=== PATIENT | female | born 1955 | race Hispanic/Latino ===

== ENCOUNTER 2020-01-07 16:26 | Emergency (ER) | payer OTHER, SELFPAY ==
[2020-01-07 16:34] VITALS: BP 115/46; PULSE 61; RESP 16; TEMP 36.6; O2SAT 99
--- NOTE | 2020-01-07 16:43 | ED.EAR ---
HPI - Ear Problem General Chief complaint: Ear Stated complaint: ear pain Time Seen by Provider: 01/07/20 16:43 Source: patient and RN notes reviewed History of Present Illness HPI Narrative: Patient is a 64-year-old female that presents the urgent care with complaints of right otalgia for the last 4 days. Patient has been taking Aleve without much relief. Denies any drainage, fever, nausea, vomiting, dizziness. Denies any history of ear infections or trauma to the ear. Has not put anything in the ear such as Q-tips, peroxide, [id number] drops. No other acute complaints. No acute distress noted. Patient aware the plan of care. Related Data Home Medications Medication Instructions Recorded Confirmed celecoxib mg 01/07/20 citalopram mg 01/07/20 levothyroxine 01/07/20 lisinopril-hydrochlorothiazide tablet 01/07/20 secukinumab [Cosentyx Pen] mg SUBCUT 01/07/20 tramadol mg 01/07/20 Allergies Allergy/AdvReac Type Severity Reaction Status Date / Time amoxicillin Allergy Mild DIARRHEA Verified 07/26/19 15:25 cat dander Allergy Unknown Wheezing Verified 01/07/20 16:31 mold Allergy Unknown Wheezing Verified 01/07/20 16:31 Sulfa (Sulfonamide Allergy Unknown Hives Verified 01/07/20 16:31 Antibiotics) Review of Systems Review of Systems: Narrative: CONSTITUTIONAL: Denies fever, chills, or sweats. EYES: Denies visual changes, redness, or discharge. ENT: Reports of right otalgia CARDIOVASCULAR: Denies chest pain, palpitations, or edema. RESPIRATORY: Denies cough or dyspnea. GASTROINTESTINAL: Denies abdominal pain, nausea, vomiting, or diarrhea. GENITOURINARY: Denies dysuria or hematuria. SKIN: Denies rash or itching. MUSCULOSKELETAL: Denies back pain, joint pain, or myalgia. NEUROLOGIC: Denies headache, numbness, or weakness. All other systems reviewed are negative, except as documented in HPI. [facility] Family History Family History (Updated 02/24/17 @ 13:12 by DOCTOR UNKNOWN) Other Family history of arthritis Family history of osteoarthritis Social History Social History Smoking status: Never smoker Comments At the time of my signature, I reviewed and agree with the nursing past medical, surgical, social, and family history. There is no relevant family history pertinent to the patient complaint. Exam Narrative: Exam Narrative: GENERAL: This is a well-nourished, well-developed patient, in no apparent distress. HEAD: normocephalic, atraumatic. EYES: PERRL. Sclera clear/white. Vision is grossly intact. EARS: External ears normal, auditory canals clear and without drainage, mild fluid noted behind right TM without otitis, left TMs normal without perforation. Hearing grossly intact. NOSE: External nose normal with no obvious nasal discharge, nares without redness, no rhinorrhea. THROAT: Mucous membranes moist NECK: Neck supple CARDIOVASCULAR: Regular rate and rhythm without murmurs, gallops, or rubs. RESPIRATORY: Clear to auscultation. Breath sounds equal bilaterally. No wheezes, rales, or rhonchi. SKIN: warm, intact with no suspicious lesions or rash, good texture and turgor. NEURO: awake, alert, and oriented to person, place and time. There were no obvious focal neurologic abnormalities. EXTREMITIES: No clubbing, cyanosis, or edema. Course Vital Signs Vital signs: Vital Signs Temperature 97.9 F 01/07/20 16:34 Pulse Rate 61 01/07/20 16:34 Respiratory Rate 16 01/07/20 16:34 Blood Pressure 115/46 L 01/07/20 16:34 Pulse Oximetry 99 01/07/20 16:34 Temperature 97.9 F 01/07/20 16:34 Pulse Rate 61 01/07/20 16:34 Respiratory Rate 16 01/07/20 16:34 Blood Pressure 115/46 L 01/07/20 16:34 Pulse Oximetry 99 01/07/20 16:34 Reviewed Medical Decision Making MDM Narrative Medical decision making narrative: Advised patient to use Claritin or Zyrtec in conjunction with Flonase nasal spray for fluid behind the ear. May also use Benadryl prior to bedtime. Do not take C
== END 2020-01-07 16:57 | disposition home or self-care (01) ==
PROVIDERS: Emergency Provider Nurse Practitioner Family; PCP Family Medicine Adolescent Medicine
DX: H92.01 Otalgia, right ear (principal); I10 Essential (primary) hypertension; E03.9 Hypothyroidism, unspecified; Z98.41 Cataract extraction status, right eye; Z98.42 Cataract extraction status, left eye
CPT/HCPCS: 99211; G0463

== ENCOUNTER 2020-07-03 08:04 | Outpatient (CLI) | payer OTHER, SELFPAY ==
--- NOTE | ~2020-07-03 | XR_ITS ---
EXAMINATION: XR hip RT min 2V DATE: 07/03/2020 08:16 INDICATION: Right hip pain. TECHNIQUE: 2 views of right hip were obtained. COMPARISON: Right hip radiographs 02/24/2017 FINDINGS: Bone alignment is normal. No fracture. There is mild right hip osteoarthritis. IMPRESSION: 1. Mild right hip osteoarthritis. Reviewed, dictated and finalized at location A.
== END 2020-07-03 08:05 ==
LOC: MICIMG 08:05
PROVIDERS: PCP Family Medicine Adolescent Medicine; Visit Provider Anesthesiology
DX: M25.551 Pain in right hip (principal); M16.11 Unilateral primary osteoarthritis, right hip
CPT/HCPCS: 73502

== ENCOUNTER 2021-03-28 08:20 | Outpatient (CLI) | payer OTHER, SELFPAY ==
--- NOTE | ~2021-03-28 | MM_ITS ---
EXAMINATION: MM screening [facility] BI w neeru HISTORY: Screening mammogram TECHNIQUE: Craniocaudal and mediolateral oblique 3-D tomosynthesis images were obtained and synthetic 2-D images were generated. CAD analysis was submitted and interpreted. COMPARISON: 08/31/2013, 09/07/2012, 01/06/2008 BREAST PARENCHYMAL COMPOSITION: There are scattered areas of fibroglandular density. FINDINGS: There is no evidence of suspicious mass, calcification, or architectural distortion to sugg est malignancy in either breast. There has been no suspicious interval change. IMPRESSION: 1. No mammographic evidence of malignancy. 2. Recommend routine screening mammography in one year. BI-RADS Category 1: Negative Reviewed, dictated and finalized at location A.
== END 2021-03-28 08:21 | disposition home or self-care (01) ==
LOC: ANHIMG 08:22
PROVIDERS: PCP Family Medicine Adolescent Medicine; Visit Provider Family Medicine Adolescent Medicine
DX: Z12.31 Encounter for screening mammogram for malignant neoplasm of breast (principal)
CPT/HCPCS: 77063; 77067

== ENCOUNTER → 2021-11-06 02:31 | Outpatient (CLI) | payer OTHER, SELFPAY ==
[2021-11-06 19:47] LABS: SARS-CoV-2 RNA PCR Positive
== END ==
PROVIDERS: PCP Family Medicine Adolescent Medicine; Visit Provider Physician Assistant
DX: U07.1 COVID-19 (principal)
CPT/HCPCS: C9803; U0003; U0005

== ENCOUNTER 2022-12-23 11:34 | Day surgery (SDC) | payer MEDICARE, SELFPAY ==
--- NOTE | 2022-12-22 16:53 | PM.HPGS ---
History of Present Illness History of Present Illness Consent: Risks, benefits, and alternatives have been discussed and questions answered. Patient agrees to proceed with procedure. Chief complaint: Family History of Colon Cancer Narrative: Lynette Phillip is a 67 year old female who was referred for colon cancer screening. She has a history of polyps and also family history of colon cancer, her brother. Review of Systems Review of Systems: All systems reviewed & are unremarkable except as noted in HPI and below PMFSH Past Medical History Medical History Allergic rhinitis Asthma Chronic low back pain Family history of colon cancer Hypertension Hypertension, essential Hypothyroid Psoriatic arthritis Thrombosed hemorrhoids Thyroid disease Surgical History Surgical History H/O rotator cuff surgery 2003 R & 2019 L History of surgery on left wrist (08/2021) DeQuervain's tendon release History of tonsillectomy Hx of section 1979 & 1984 Family History Family History Sibling Carcinoma of colon Diabetes mellitus Father Heart disease Acute myocardial infarction Hypertension Daughter Asthma Depression Son Asthma Family history of arthritis Family history of osteoarthritis Sibling Diabetes mellitus Carcinoma of colon Other Colon polyp Social History Social History Smoking status: Never smoker Second hand tobacco smoke exposure: No Alcohol intake: current Drinks per week: 4 Alcohol use details: Socially Substance use: never Substance use type: does not use Living arrangements: alone Occupation/Education: retired Gender identity (if verbalized by the patient): Female Sexual Orientation (if Verbalized by the Patient): Straight or Heterosexual Spiritual care concerns: No Agree to blood products: Yes Meds Home Medications and Allergies Home Medications Medication Instructions Recorded Confirmed Type celecoxib 200 mg capsule 200 mg PO DAILY 01/07/20 12/23/22 History secukinumab 150 mg/mL subcutaneous 150 mg subcut MONTHLY 01/07/20 12/23/22 History pen injector (Cosentyx Pen) ascorbate calcium (vitamin C) 500 500 mg PO DAILY 06/06/21 12/23/22 History mg tablet biotin 10 mg tablet 10 mg PO DAILY 06/06/21 12/23/22 History cholecalciferol (vitamin D3) 125 125 mcg PO DAILY 06/06/21 12/23/22 History mcg (5,000 unit) capsule tramadol 50 mg tablet 50 mg PO TID PRN Pain 12/24/21 12/23/22 History lisinopril 20 mg tablet 20 mg PO DAILY #90 tabs 04/07/22 12/23/22 Rx citalopram 40 mg tablet 20 mg PO DAILY 04/22/22 12/23/22 History levothyroxine 200 mcg tablet 200 mcg PO DAILY #90 tabs 09/14/22 12/23/22 Rx albuterol sulfate 90 mcg/actuation 2 inh inhalation Q4H PRN shortness 10/14/22 12/23/22 Rx aerosol inhaler of breath or wheezing #8.5 grams Allergies Allergy/AdvReac Type Severity Reaction Status Date / Time cat dander Allergy Unknown Wheezing Verified 11/11/22 07:44 mold Allergy Unknown Wheezing Verified 11/11/22 07:44 Sulfa (Sulfonamide Allergy Unknown Hives Verified 12/23/22 11:55 Antibiotics) amoxicillin AdvReac Mild DIARRHEA Verified 12/23/22 11:55 Exam Resp: Auscultation: clear to auscultation bilaterally Cardio: Rate: regular rate Rhythm: regular rhythm GI: GI Palp: Yes Soft to palpation and No Tenderness to palpation present (GI) Assessment and Plan Assessment and plan (1) Colon cancer screening: Code(s): Z12.11 - Encounter for screening for malignant neoplasm of colon Status: Acute Assessment and Plan: Colonoscopy with possible biopsy or polypectomy or cautery or injection of substances.
[2022-12-23 12:02] VITALS: BMI 30.8
[2022-12-23 12:37] VITALS: BP 100/51; PULSE 66; RESP 18; TEMP 36.6; O2SAT 99
--- NOTE | 2022-12-23 12:42 | WPDANESEPPF ---
Anes - Initial Pre Proc Eval Procedure: Operation Date: 12/23/22 13:00 Proposed Procedures p Screening Colonoscopy - Marcus Parker MD Date/Time: 12/23/22 12:42 Surgeon: Marcus Parker MD Pre Op Diagnosis: Family History of Colon Cancer Patient Data Age: 67 Gender: F Height: 1.6 m Weight: 79 kg Last Vital Signs Temp 36.6 C 12/23/22 12:37 Pulse 66 12/23/22 12:37 Resp 18 12/23/22 12:37 BP 100/51 L 12/23/22 12:37 Pulse Ox 99 12/23/22 12:37 O2 Del Method Room Air 12/23/22 12:37 Allergies Allergy/AdvReac Type Severity Reaction Status Date / Time cat dander Allergy Unknown Wheezing Verified 11/11/22 07:44 mold Allergy Unknown Wheezing Verified 11/11/22 07:44 Sulfa (Sulfonamide Allergy Unknown Hives Verified 12/23/22 11:55 Antibiotics) amoxicillin AdvReac Mild DIARRHEA Verified 12/23/22 11:55 Home Medications Medication Instructions Recorded Confirmed Type celecoxib 200 mg capsule 200 mg PO DAILY 01/07/20 12/23/22 History secukinumab 150 mg/mL subcutaneous 150 mg subcut MONTHLY 01/07/20 12/23/22 History pen injector (Cosentyx Pen) ascorbate calcium (vitamin C) 500 500 mg PO DAILY 06/06/21 12/23/22 History mg tablet biotin 10 mg tablet 10 mg PO DAILY 06/06/21 12/23/22 History cholecalciferol (vitamin D3) 125 125 mcg PO DAILY 06/06/21 12/23/22 History mcg (5,000 unit) capsule tramadol 50 mg tablet 50 mg PO TID PRN Pain 12/24/21 12/23/22 History lisinopril 20 mg tablet 20 mg PO DAILY #90 tabs 04/07/22 12/23/22 Rx citalopram 40 mg tablet 20 mg PO DAILY 04/22/22 12/23/22 History levothyroxine 200 mcg tablet 200 mcg PO DAILY #90 tabs 09/14/22 12/23/22 Rx albuterol sulfate 90 mcg/actuation 2 inh inhalation Q4H PRN shortness 10/14/22 12/23/22 Rx aerosol inhaler of breath or wheezing #8.5 grams Patient hx anesthesia problems: none Family hx anesthesia problems: other (sister vagal) Results Review: All pre-operative results and documents have been reviewed as part of the pre-operative evaluation. [facility] Past Medical History Medical History Allergic rhinitis Asthma Chronic low back pain Family history of colon cancer Hypertension Hypertension, essential Hypothyroid Psoriatic arthritis Thrombosed hemorrhoids Thyroid disease Surgical History Surgical History H/O rotator cuff surgery 2003 R & 2019 L History of surgery on left wrist (08/2021) DeQuervain's tendon release History of tonsillectomy Hx of section 1979 & 1984 Family History Family History Sibling Carcinoma of colon Diabetes mellitus Father Heart disease Acute myocardial infarction Hypertension Daughter Asthma Depression Son Asthma Family history of arthritis Family history of osteoarthritis Sibling Diabetes mellitus Carcinoma of colon Other Colon polyp Social History Social History Smoking status: Never smoker Second hand tobacco smoke exposure: No Alcohol intake: current Drinks per week: 4 Alcohol use details: Socially Substance use: never Substance use type: does not use Living arrangements: alone Occupation/Education: retired Gender identity (if verbalized by the patient): Female Sexual Orientation (if Verbalized by the Patient): Straight or Heterosexual Spiritual care concerns: No Agree to blood products: Yes Anes - Eval Final PreProcedure Day of Procedure 12/23/22 12:42 Patient weight: obese Heart: regular rate and rhythm Lungs: clear to auscultation Airway: Mallampati scale class II Neurological: alert and oriented Last oral intake: >/= 8 hours ASA classification: III Emergent: no Anesthetic plan: proceed Anesthesia type and monitoring: general GIVS and standard monitoring Results Revie
[2022-12-23] MEDS: LACTATED RINGERS 1,000 ML 150 ML IV CONT (13:01)
[2022-12-23 13:25] VITALS: BP 99/50; PULSE 54; RESP 16; O2SAT 100
--- NOTE | 2022-12-23 13:34 | WPDANESPN ---
Anes - Prog Note Post-Op Date/Time: 12/23/22 13:34 Cardiovascular status: normal Respiratory status: normal Airway patency: baseline Mental status: baseline Post-Op hydration status: normal Vital Signs: Last Vital Signs Temp 36.6 C 12/23/22 12:37 Pulse 66 12/23/22 12:37 Resp 18 12/23/22 12:37 BP 100/51 L 12/23/22 12:37 Pulse Ox 99 12/23/22 12:37 O2 Del Method Room Air 12/23/22 12:37 Pain Score (VAS): 0 I/O: Intake & Output 12/22/22 12/23/22 12/23/22 23:59 07:59 15:59 Intake Total 300 Balance 300 Patient Feedback: Patient satisfied with anesthetic care.
[2022-12-23 13:35] VITALS: BP 110/50; PULSE 53; RESP 15; O2SAT 99
[2022-12-23 13:45] VITALS: BP 100/50; PULSE 51; RESP 15; O2SAT 100
== END 2022-12-23 14:11 | disposition home or self-care (01) ==
PROVIDERS: PCP Family Medicine Adolescent Medicine; Visit Provider Internal Medicine Gastroenterology
PROC: 0DJD8ZZ Inspection of Lower Intestinal Tract, Via Natural or Artificial Opening Endoscopic (ICD-10-PCS; CPT 45378; principal; 2022-12-23 13:00)
DX: Z12.11 Encounter for screening for malignant neoplasm of colon (principal)
CPT/HCPCS: 45378

== ENCOUNTER 2023-09-20 07:27 | Emergency (ER) | payer MEDICARE, SELFPAY ==
--- NOTE | ~2023-09-20 | CT_ITS ---
EXAMINATION: CT facial & cervical spine wo DATE: 09/20/2023 08:07 INDICATION: Head injury TECHNIQUE: Computed tomography (CT) of the maxillofacial region and cervical spine was performed with out intravenous contrast. The dose-length product (DLP) was 369.71 mGy-cm. Automated exposure control and iterative reconstruction technique were employed. COMPARISON: None FINDINGS: MAXILLOFACIAL CT: There is a right frontal scalp hematoma. No facial fractures identified. The globes and orbits are no rmal. Changes in the globes are likely from ocular lens surgery. CERVICAL SPINE CT: There are 2 mm of anterolisthesis of C4 on C5. There is moderate loss of intervertebral disc space he ight at C5-6 and C6-7. The vertebral body heights are maintained. The odontoid process is intact. The re is multilevel severe facet and uncovertebral joint osteoarthritis. Small degenerative osteophytes project from the anterior endplates of multiple vertebral bodies. IMPRESSION: 1. Right frontal scalp hematoma without acute abnormality of the facial bones. 2. Moderate cervical spondylosis without acute findings. Reviewed, dictated and finalized at location B. 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
--- NOTE | ~2023-09-20 | CT_ITS ---
EXAMINATION: CT brain wo con INDICATION: Head injury COMPARISON: 09/16/2008 TECHNIQUE: Standard unenhanced head CT. The dose-length product (DLP) was 605.33 mGy-cm. The mA was a djusted according to patient size. Iterative reconstruction technique was employed. FINDINGS: No intracranial hemorrhage, acute infarction, or abnormal mass lesion. The ventricles are n ormal. No abnormal mass effect or midline shift. The browning-white matter differentiation is normal. The basal cisterns are patent. There is a right frontal scalp hematoma. The orbits are normal. There is mild mucosal thickening of the paranasal sinuses. IMPRESSION: 1. No acute intracranial abnormality. Reviewed, dictated and finalized at location B. 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
[2023-09-20 07:33] VITALS: BP 159/76; PULSE 53; RESP 18; TEMP 36.7; O2SAT 98
--- NOTE | 2023-09-20 07:46 | ED.GENADULT ---
HPI - General Adult General Chief complaint: Fall Stated complaint: fall Time Seen by Provider: 09/20/23 07:32 History of Present Illness HPI narrative: Patient is a 67-year-old female who presents ER after a fall overnight. Patient was walking in the dark to care for her puppy who was barking. She tripped over a dog toy and landed on her face. Positive LOC. She has tenderness over her nose with persistent tearing in her eyes. She has a right-sided headache. She is on no blood thinning medications. Denies neck pain. No change in vision. No foreign body sensation in the eyes. Related Data Home Medications Medication Instructions Recorded Confirmed secukinumab 150 mg/mL subcutaneous 150 mg subcut MONTHLY 01/07/20 01/13/23 pen injector (Cosentyx Pen) ascorbate calcium (vitamin C) 500 500 mg PO DAILY 06/06/21 01/13/23 mg tablet cholecalciferol (vitamin D3) 125 125 mcg PO DAILY 06/06/21 01/13/23 mcg (5,000 unit) capsule cetirizine 10 mg tablet (Zyrtec) 20 mg PO DAILY PRN 04/06/23 Allergies Allergy/AdvReac Type Severity Reaction Status Date / Time cat dander Allergy Unknown Wheezing Verified 09/20/23 07:39 mold Allergy Unknown Wheezing Verified 09/20/23 07:39 Sulfa (Sulfonamide Allergy Unknown Hives Verified 09/20/23 07:39 Antibiotics) amoxicillin AdvReac Mild DIARRHEA Verified 09/20/23 07:39 Review of Systems Review of Systems: All systems reviewed & are unremarkable except as noted in HPI and below Constitutional: Constitutional: Denies chills and Denies fever(s) Eyes: Eyes: Denies change in vision and Denies photophobia Comments: Tearing of the eyes ENT: Reports epistaxis (Right naris), Reports nasal congestion and Denies sore throat Cardiovascular: Cardiovascular: Reports no additional cardiovascular complaints Respiratory: Respiratory: Reports no additional respiratory complaints Neurologic: Denies confusion, Reports headache(s), Denies focal weakness and Denies numbness PMFSH Past Medical History Medical History Allergic rhinitis Asthma Chronic low back pain Hypertension, essential Hypothyroid Osteoarthritis Psoriatic arthritis Thrombosed hemorrhoids Thyroid disease Surgical History Surgical History H/O rotator cuff surgery 2004 R & 2019 L History of surgery on left wrist (08/2021) DeQuervain's tendon release History of tonsillectomy Hx of section 1979 & 1984 Family History Family History Sibling Carcinoma of colon Diabetes mellitus Father Heart disease Acute myocardial infarction Hypertension Daughter Asthma Depression Son Asthma Family history of arthritis Family history of osteoarthritis Sibling Diabetes mellitus Carcinoma of colon Other Colon polyp Social History Social History Smoking status: Never smoker Second hand tobacco smoke exposure: No Alcohol intake: current Drinks per week: 4 Alcohol use details: Socially Substance use: never Substance use type: does not use Lack of Transportation: No Lack of Food: Never True Current Housing: I Have Housing Concerned About Future Housing: No Difficulty Paying Gas/Electric Bills: No Difficulty Paying for Meds: No Currently Unemployed: No Education: Associate Degree Difficulty w/ Childcare or Family Care: No Living arrangements: alone Occupation/Education: retired Gender identity (if verbalized by the patient): Female Sexual Orientation (if Verbalized by the Patient): Straight or Heterosexual Spiritual care concerns: No Agree to blood products: Yes Exam Narrative: GENERAL: Well-appearing, well-nourished, and in no acute distress. HEAD: Normocephalic, facial trauma noted. EYES: PERR
[2023-09-20] MEDS: ONDANSETRON INJ 4 MG/2 ML VIAL IV PUSH (10:33)
[2023-09-20 10:45] VITALS: BP 131/50; PULSE 64; RESP 18; O2SAT 99
== END 2023-09-20 10:48 | disposition home or self-care (01) ==
PROVIDERS: Emergency Provider Emergency Medicine; PCP Family Medicine Adolescent Medicine
DX: S06.0X9A Concussion with loss of consciousness of unspecified duration, initial encounter (principal); S00.83XA Contusion of other part of head, initial encounter; J45.909 Unspecified asthma, uncomplicated; I10 Essential (primary) hypertension; E03.9 Hypothyroidism, unspecified; E07.9 Disorder of thyroid, unspecified; M19.90 Unspecified osteoarthritis, unspecified site; L40.50 Arthropathic psoriasis, unspecified; M47.812 Spondylosis without myelopathy or radiculopathy, cervical region; W18.09XA Striking against other object with subsequent fall, initial encounter
CPT/HCPCS: 70450; 70486; 72125; 96374; 99284; J2405

== ENCOUNTER 2024-02-14 15:53 | Outpatient (CLI) | payer MEDICARE, SELFPAY ==
--- NOTE | ~2024-02-14 | XR_ITS ---
Left Hand Technique: PA, oblique, and lateral views were obtained. Clinical History: Osteoarthritis Findings: No acute fracture or dislocation is seen. There is mild degenerative change of the first CM C joint. There is advanced degenerative change of the third DIP joint. There is moderate degenerative change of the fifth DIP joint. Soft tissues are unremarkable. Impression: Polyarticular osteoarthritis, as detailed above. Reviewed, dictated and finalized at location M. Impression: Polyarticular osteoarthritis, as detailed above.
--- NOTE | ~2024-02-14 | XR_ITS ---
Right Hand Technique: PA, oblique, and lateral views were obtained. Clinical History: Osteoarthritis Findings: No acute fracture or dislocation is seen. There is mild degenerative change of the first CM C joint. There is moderate to advanced degenerative change of the fourth and fifth DIP joints. There is mild degenerative change of the PIP joints.. Soft tissues are unremarkable. Impression: Polyarticular osteoarthritis, as detailed above. Reviewed, dictated and finalized at location M. Impression: Polyarticular osteoarthritis, as detailed above.
== END 2024-02-14 15:54 ==
PROVIDERS: PCP Family Medicine Adolescent Medicine; Visit Provider Plastic Surgery
DX: M19.041 Primary osteoarthritis, right hand (principal); M19.042 Primary osteoarthritis, left hand
CPT/HCPCS: 73130

== ENCOUNTER 2024-10-26 12:09 | Emergency (ER) | payer MEDICARE, SELFPAY ==
[2024-10-26 12:09] VITALS: BP 116/47; PULSE 54; RESP 17; TEMP 36.7; O2SAT 96
--- NOTE | 2024-10-26 12:15 | ED_ITS ---
HPI - Allergic Reaction General Chief complaint: Allergic Reaction Stated complaint: ?allergic reaction Time Seen by Provider: 10/26/24 12:15 Source: patient, EMS and RN notes reviewed Mode of arrival: EMS Limitations: no limitations History of Present Illness HPI narrative: Patient presents with concern for allergic reaction versus angioedema. She presents urgent care. Overnight she felt like her lip was swollen this was more noticeable when she got up at 9:30 a.m. this morning. She has been taking lisinopril for several years and in fact the dose was recently changed in that it was decreased from 20 to 10 becomes she has otherwise been losing weight has concomitantly been experiencing improvement in her hypertension. She denies any shortness of breath nausea vomiting. She did briefly have a weird feeling in her throat that is now gone. She felt like her neck was possibly swollen the left more than the right. She otherwise denies any new foods, bedding, environmental factors, soaps, detergents. No rash or pruritus. She was administered intramuscular 125 mg Solu-Medrol and 25 mg diphenhydramine. Related Data Home Medications ?Medication ?Instructions ?Recorded ?Confirmed ?Last Taken ?Type cholecalciferol (vitamin D3) 125 125 mcg PO DAILY 06/06/21 10/19/24 12/20/22 History mcg (5,000 unit) capsule cetirizine 10 mg tablet (Zyrtec) 20 mg PO DAILY PRN 04/06/23 10/19/24 Unknown History secukinumab 150 mg/mL subcutaneous 150 mg subcut ONCE 06/30/24 10/19/24 Unknown History syringe (Cosentyx) tirzepatide (weight loss) 10 10 mg subcut WEEKLY 10/19/24 10/19/24 Unknown History mg/0.5 mL subcutaneous pen injector Allergies Allergy/AdvReac Type Severity Reaction Status Date / Time lisinopril Allergy Intermediate angioedema Verified 10/26/24 14:14 cat dander Allergy Unknown Wheezing Verified 10/26/24 12:15 mold Allergy Unknown Wheezing Verified 10/26/24 12:15 Sulfa (Sulfonamide Allergy Unknown Hives Verified 10/26/24 12:15 Antibiotics) amoxicillin AdvReac Mild DIARRHEA Verified 10/26/24 12:15 PMF Past Medical History Medical History Osteoarthritis Allergic rhinitis Psoriatic arthritis Chronic low back pain Thrombosed hemorrhoids Hypertension, essential Thyroid disease Asthma Surgical History Surgical History History of tonsillectomy History of surgery on left wrist (08/2021) DeQuervain's tendon release H/O rotator cuff surgery 2004 R & 2019 L Hx of section 1979 & 1984 Family History Family History Sibling Carcinoma of colon Diabetes mellitus Father Heart disease Acute myocardial infarction Hypertension Daughter Asthma Depression Son Asthma Family history of arthritis Family history of osteoarthritis Sibling Diabetes mellitus Carcinoma of colon Other Colon polyp Social History Social History Smoking status: Never smoker Second hand tobacco smoke exposure: No Alcohol intake: current Drinks per week: 4 Alcohol use details: Socially Substance use type: marijuana Other substance usage details: Occasional Do You Feel Safe in your Home?: Yes Lack of Transportation: No Lack of Food: Never True Current Housing: I Have Housing Concerned About Future Housing: No Difficulty Paying Gas/Electric Bills: No Difficulty Paying for Meds: No Currently Unemployed: YES Education: Associate Degree Difficulty w/ Childcare or Family Care: No Living arrangements: alone Occupation/Education: retired Gender identity (if verbalized by the patient): Female Sexual Orientation (if Verbalized by the Patient): Straight or Heterosexual Spiritual care concerns: No Agree to blood products: Yes Exam 2 Narrative: GENERAL: Well-appearing, well-nourished, and in no acute distress. HEAD: Normocephalic, atraumatic. EYES: Non injected, non icteric ENT: Nares clear, no rhinorrhea or epistaxis. Normal posterior oropharynx without tonsillar hypertrophy, erythema. Patient does have swollen lower lip the right greater than the left. Tongue is normal size patient maintaining secretions. No swelling under tongue. NECK: Supple. No appreciable swelling or fullness. No submandibular swelling. CHEST: Speaking in full sentences. No respiratory distress. Lungs clear to auscultation bilaterally without wheezes. No stridor. HEART: Bradycardic rate and rhythm. . ABDOMEN: Soft, nondistended. EXTREMITIES: Normal range of motion. No lower extremity edema. SKIN: Warm, dry, no rash. NEURO: No focal deficits. Alert and oriented x3. PSYCH: Normal mood and affect. Course Vital Signs Vital signs: Vital Signs Temperature 98.0 F 10/26/24 12:09 Pulse Rate 54 L 10/26/24 12:09 Respiratory Rate 17 10/26/24 12:09 Blood Pressure 116/47 L 10/26/24 12:09 Pulse Oximetry 96 10/26/24 12:09 Oxygen Delivery Room Air 10/26/24 12:09 Temperature 98.0 F 10/26/24 12:09 Pulse Rate 60 10/26/24 15:30 Respiratory Rate 16 10/26/24 15:30 Blood Pressure 108/59 L 10/26/24 15:30 Pulse Oximetry 99 10/26/24 15:30 Oxygen Delivery Room Air 10/26/24 12:45 MDM - Allergic Reaction MDM Narrative Medical decision making narrative: Patient presents with concern for allergic reaction versus angioedema. She is on lisinopril and has been taking this for years (in fact, recent dose change in that it was decreased 2 weeks ago given she has been losing weight). In the emergency department she is afebrile with vital signs notable for mild bradycardia as mildly low diastolic blood pressure. Patient is reassessed. Lip appears about the same, slightly improved. No additional symptoms. Notified that she would remain in the ED for a bit longer for observation and lisinopril would be added to her allergy list and that she should follow-up with her primary care physician Dr. Purvis to discuss alternative antihypertensive regimen. Patient verifies understanding and is in agreement. Differential Diagnosis Differential diagnosis: Likely anaphylaxis, allergic reaction, angioedema and adverse reaction to drug Lab Data Attestation: I reviewed the patient's lab results. 10/26/24 12:32 10/26/24 12:32 Labs: Lab Results 10/26/24 Range/Units 12:32 WBC 5.7 (4.5-10.0) K/mm3 RBC 3.99 L (4.2-5.4) M/mm3 Hgb 12.3 (12.0-15.0) g/dL Hct 37.1 (37.0-47.0) % MCV 93.0 (80-100) fl MCH 30.8 (26-34) pg MCHC 33.2 (32-36) g/dl RDW 13.8 (11.5-14.5) % Plt Count 224 (150-375) k/mm3 MPV 9.9 (7.4-10.4) fl Immature Gran % (Auto) 0.2 (0-0.5) % Neut % (Auto) 64.7 (45.5-73.1) % Lymph % (Auto) 20.3 (18.3-44.2) % [place] % (Auto) 5.4 (2.6-8.5) % Eos % (Auto) 8.9 H (0-4.4) % Baso % (Auto) 0.5 (0.2-1.2) % Lymph # (Auto) 1.16 (0.9-3.2) K/mm3 [place] # (Auto) 0.3 (0.1-0.6) K/mm3 Eos # (Auto) 0.5 H (0-0.3) K/mm3 Baso # (Auto) 0.0 (0.0-0.1) K/mm3 Abs Immat Gran (auto) 0.01 (0.00-0.031) K/mm3 Absolute Neuts (auto) 3.7 (1.3-6.7) K/mm3 Absolute Nucleated RBC 0.000 (0.0-0.012) K/mm3 Nucleated RBC % 0.0 (0.0-0.2) % Sodium 136 L (137-145) mmol/L Potassium 4.0 (3.4-5.0) mmol/L Chloride 108 H (98-107) mmol/L Carbon Dioxide 24 (22-30) mmol/L Anion Gap 4 (4-12) mmol/L BUN 23 H (7-17) mg/dL Creatinine 0.90 (0.7-1.0) mg/dL Estim Creat Clear Calc 53 ml/min Estimated GFR > 60 (59 - ) Glucose 95 (65-110) mg/dL Calcium 8.8 (8.4-10.2) mg/dL Magnesium 1.8 (1.6-2.3) mg/dL Total Bilirubin 0.6 (0.2-1.3) mg/dL AST 29 (14-36) U/L ALT 12 (6-35) U/L Alkaline Phosphatase 52 (38-126) U/L Total Protein 7.0 (6.3-8.2) g/dL Albumin 4.0 (3.5-5.1) g/dL C1 Esterase Inhibitor Pending Complement C4 32.4 (14.0-44.0) mg/dL ECG Data EKG #1: Attestation: I personally reviewed and interpreted this ECG as follows: ECG completion date: 10/26/24 ECG completion time: 12:13 Interpretation: Sinus bradycardia rate of 54 beats per minute. NE interval 164. QRS 89. QT/QTC 468/453. Good R-wave progression across the precordial leads. No T-wave inversions in inferior leads or leads V3 through V6. 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 It has been added to her allergy list in the computer/electronic medical record. Please follow-up with primary care physician to discuss alternative blood pressure medication. Do NOT continue to take lisinopril. Return to the emergency department with any new or worsening symptoms. Patient Language: Slovenian Prescriptions: No Action cholecalciferol (vitamin D3) 125 mcg (5,000 unit) capsule 125 mcg PO DAILY cetirizine [Zyrtec] 10 mg tablet 20 mg PO DAILY PRN lisinopril 10 mg tablet 10 mg PO DAILY Qty: 100 3RF tirzepatide (weight loss) 10 mg/0.5 mL pen injector 10 mg subcut WEEKLY estradiol 0.01 % (0.1 mg/gram) cream 1 g vaginal 2XW Qty: 42.5 1RF Cosentyx 150 mg/mL syringe 150 mg subcut ONCE albuterol sulfate 90 mcg/actuation HFA aerosol inhaler 2 inh inhalation Q4H PRN (Reason: shortness of breath or wheezing) Qty: 8.5 1RF celecoxib 200 mg capsule 200 mg PO DAILY Qty: 100 1RF citalopram 40 mg tablet See Rx Instructions .ROUTE .COMPLEX Qty: 50 2RF Dose Instruction: TAKE ONE-HALF TABLET BY MOUTH DAILY Rx Instructions: TAKE ONE-HALF TABLET BY MOUTH DAILY montelukast 10 mg tablet 10 mg PO DAILY Qty: 90 3RF tramadol 50 mg tablet 50 mg PO TID PRN (Reason: Pain) Qty: 90 1RF levothyroxine [Synthroid] 150 mcg tablet See Rx Instructions .ROUTE .COMPLEX Qty: 90 2RF Dose Instruction: TAKE 1 TABLET BY MOUTH DAILY Rx Instructions: TAKE 1 TABLET BY MOUTH DAILY Follow-up/Referrals: Abdiaziz Singh MD [Primary Care Provider] - Stand Alone Forms: Work/School Release IP Time of Disposition: 14:24
[2024-10-26 12:40] LABS: Basophils Percent Auto 0.5 % (0.2-1.2); Eosinophils Absolute Auto 0.5 K/mm3 (0-0.3); Eosinophils Percent Auto 8.9 % (0-4.4); Hematocrit 37.1 % (37.0-47.0); Hemoglobin 12.3 g/dL (12.0-15.0); Immature Granulocyte Absolute 0.01 K/mm3 (0.00-0.031); Immature Granulocyte Percent A 0.2 % (0-0.5); Lymphocytes Absolute Auto 1.16 K/mm3 (0.9-3.2); Lymphocytes Percent Auto 20.3 % (18.3-44.2); Mean Corpuscular HGB Conc 33.2 g/dl (32-36); Mean Corpuscular Hemoglobin 30.8 pg (26-34); Mean Platelet Volume 9.9 fl (7.4-10.4); Monocytes Absolute Auto 0.3 K/mm3 (0.1-0.6); Monocytes Percent Auto 5.4 % (2.6-8.5); Neutrophils Absolute Auto 3.7 K/mm3 (1.3-6.7); Neutrophils Percent Auto 64.7 % (45.5-73.1); Platelet Count Result 224 k/mm3 (150-375); Red Blood Count 3.99 M/mm3 (4.2-5.4); Red Cell Distribution Width 13.8 % (11.5-14.5); White Blood Count 5.7 K/mm3 (4.5-10.0)
[2024-10-26] MEDS: TRANEXAMIC ACID 1,000 MG/10 ML AMPUL 1000 MG IV PUSH (12:46)
[2024-10-26 12:50] LABS: Alanine Aminotransferase 12 U/L (6-35); Alkaline Phosphatase 52 U/L (38-126); Anion Gap 4 mmol/L (4-12); Aspartate Amino Transferase 29 U/L (14-36); Bilirubin,Total 0.6 mg/dL (0.2-1.3); Blood Urea Nitrogen 23 mg/dL (7-17); Calcium 8.8 mg/dL (8.4-10.2); Carbon Dioxide 24 mmol/L (22-30); Chloride 108 mmol/L (98-107); Estimated CRCL calculation 53 ml/min; Estimated Glomerular Filt Rate > 60; Glucose 95 mg/dL (65-110); Magnesium 1.8 mg/dL (1.6-2.3); Sodium 136 mmol/L (137-145)
[2024-10-26 13:01] VITALS: BP 116/45; PULSE 58; RESP 16; O2SAT 95
[2024-10-26 13:31] VITALS: BP 113/46; PULSE 59; RESP 11; O2SAT 99
[2024-10-26 14:01] VITALS: BP 112/49; PULSE 59; RESP 17; O2SAT 96
[2024-10-26 14:31] VITALS: BP 114/52; PULSE 60; RESP 18; O2SAT 96
[2024-10-26 15:30] VITALS: BP 108/59; PULSE 60; RESP 16; O2SAT 99
--- NOTE | 2024-10-26 15:52 | ECG_ITS ---
Test Date: 2024-10-26 12:13:43 Measurements Intervals [place] Rate: 54 P: 54 MS: 164 QRS: 14 QRSD: 89 T: 83 QT: 468 QTc: 445 Interpretive Statements SINUS BRADYCARDIA LOW QRS VOLTAGE IN PRECORDIAL LEADS [QRS DEFLECTION < 1.0 mV IN CHEST LEADS] No previous ECG available for comparison Electronically Signed On 10-26-2024 16:17:32 [employer]PATCH[employer] by En Dominguez
[2024-10-30 22:13] LABS: C1 Esterase Inhibitor >100 % (>=68)
== END 2024-10-26 15:30 | disposition home or self-care (01) ==
PROVIDERS: Emergency Provider Student in an Organized Health Care Education/Training Program; PCP Family Medicine Adolescent Medicine
DX: T78.3XXA Angioneurotic edema, initial encounter (principal); T46.4X5A Adverse effect of angiotensin-converting-enzyme inhibitors, initial encounter; I10 Essential (primary) hypertension; E07.9 Disorder of thyroid, unspecified; L40.50 Arthropathic psoriasis, unspecified; M19.90 Unspecified osteoarthritis, unspecified site; R00.1 Bradycardia, unspecified
CPT/HCPCS: 36415; 80053; 83735; 85025; 86160; 93005; 96374; 99284

== ENCOUNTER 2025-05-21 08:52 | Outpatient (CLI) | payer MEDICARE, SELFPAY ==
--- NOTE | ~2025-05-21 | DEXA_ITS ---
Bone Density Report Name: SHELBI CASTILLO Age: 69 Sex: Female Ethnicity: White Date of : 1955 Indication: postmenopausal; screening for osteoporosis; Referring Provider: SHELBI BHATT Study: Bone densitometry was performed. Exam Date: May 21, 2025 Accession number: [id number] Bone Density: Region BMD T-score Z-score Classification AP Spine(L1-L4) 1.041 -0.1 2.0 Normal Femoral Neck (Left) 0.670 -1.6 0.2 Osteopenia Total Hip (Left) 0.893 -0.4 1.1 Normal Femoral Neck (Right) 0.645 -1.8 -0.1 Osteopenia Total Hip (Right) 0.871 -0.6 0.9 Normal Total Hip Mean 0.882 -0.5 1.0 Normal World Health Organization criteria for BMD impression classify patients as: Normal (T-score at or above -1.0), Osteopenia (T-score between -1.0 and -2.5), or Osteoporosis (T-score at or below -2.5). 10-year Fracture Risk(1): Major Osteoporotic Fracture 11% Hip Fracture 1.8% Reported Risk Factors: [place] (), Neck BMD=0.645, BMI=29.5 (1) FRAX(R) Version 3.08. Fracture probability calculated for an untreated patient. Fracture probability may be lower if the patient has received treatment. Previous Exams: -- Region Exam Age BMD T-score BMD Change BMD Change Date g/cm2 vs Baseline vs Previous -- AP Spine (L1-L4) 05/21/2025 69 1.041 -0.1 -2.5%# -2.5%# 07/27/2016 60 1.067 0.2 Total Hip(Left) 05/21/2025 69 0.893 -0.4 -12.8%# -12.8%# 07/27/2016 60 1.025 0.7 Total Hip(Right) 05/21/2025 69 0.871 -0.6 -14.7%# -14.7%# 07/27/2016 60 1.021 0.6 -- *Denotes significance at 95% confidence level, LSC for AP Spine = 0.022 g/cm2, LSC for Total Hip = 0.027 g/cm2 # Denotes dissimilar scan types or analysis methods Clinical Information Provided by Patient: Has used the following medications: Vitamin D Patient maximum height was 63 Menopause Age: 50 Does not regularly consume dairy products Drinks caffeinated beverages Onset of menses at age 9 Number of children 2 Impression: The patient has low bone mass, based on the Right Femoral Neck T-score. The patient has an estimated ten-year risk of hip fracture of 1.8% and an estimated ten-year risk of major fracture of 11%, based on the WHO FRAX algorithm. Unable to evaluate interval change due to the use of different scan modes. Discussion: BONE DENSITY IS LOW AT ONE OR MORE SKELETAL SITES. This patient's lowest T-score is low at one or more skeletal sites. It meets the World Health Organization's (WHO) criteria for ?low bone mass? (T-score between -1.0 and -2.5). The patient's 10-year risk of fracture as calculated by FRAX is less than the threshold where pharmacological therapy is recommended by the National Osteoporosis Foundation (NOF). However, all treatment decisions require clinical judgment and consideration of individual patient factors, including patient preferences, comorbidities, previous drug use, risk factors not captured in the FRAX model (e.g., frailty, falls, vitamin D deficiency, increased bone turnover, interval significant decline in bone density) and possible under or overestimation of fracture risk by FRAX. The patient should follow a healthful lifestyle (good nutrition with adequate calcium and vitamin D, and appropriate weight-bearing exercise). Follow-Up: Consider repeating this study in 2 to 3 years to reassess this patient's status, or sooner if there is some new clinical indication. Reported by: JACK on 05/21/2025 9:19:00 AM. Reviewed, dictated and finalized at location A.
== END 2025-05-21 08:53 | disposition home or self-care (01) ==
LOC: MICIMG 08:53
PROVIDERS: PCP Family Medicine Adolescent Medicine; Visit Provider Nurse Practitioner Family
DX: Z78.0 Asymptomatic menopausal state (principal); M85.852 Other specified disorders of bone density and structure, left thigh; M85.851 Other specified disorders of bone density and structure, right thigh
CPT/HCPCS: 77080

== ENCOUNTER 2025-08-16 08:54 | Outpatient (CLI) | payer MEDICARE, SELFPAY ==
--- NOTE | ~2025-08-16 | MM_ITS ---
EXAMINATION: MM screening [facility] BI w neeru HISTORY: Screening TECHNIQUE: Craniocaudal and mediolateral oblique 3-D tomosynthesis images were obtained and synthetic 2-D images were generated. CAD analysis was submitted and interpreted. COMPARISON: 03/28/2021 BREAST PARENCHYMAL COMPOSITION: Not Dense: The breasts are almost entirely fatty. FINDINGS: There is no evidence of suspicious mass, calcification, or architectural distortion to suggest malignancy in either breast. There has been no suspicious interval change. IMPRESSION: 1. No mammographic evidence of malignancy. 2. Recommend routine screening mammography in one year. BI-RADS Category 1: Negative Reviewed, dictated and finalized at location B.
--- OUTSIDE RECORDS SUMMARY | 2025-08-16 09:15 | XMS_ITS | Clinical Summary ---
Author Organization 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 Name Role Phone Abdiaziz Singh MD Primary Care Prov ider Allergies Active Allergy Reactions Criticality Noted Date Comments Leflunomide Unknown Low 02/25/2022 Etanercept Hives Medium 02/25/2022 Lisinopril Swelling Medium 10/31/2024 Methotrexate Nausea & Vomiting High 02/25/2022 Hydroxychloroquine Hives Medium 02/25/2022 Sulfa (Sulfonamide Antibiotics) Hives Medium 04/15 Medications celecoxib (CeleBREX) 200 mg capsule 1 capsule (200 mg total) daily 2 Active citalopram (CeleXA) 40 mg tablet 0.5 tablets (20 mg total) 2 Active traMADoL (ULTRAM) 50 mg tablet Take 1 tablet (50 mg total) by mouth every 6 (six) hours as needed for pain Active montelukast (SINGULAIR) 10 mg tablet Take 1 tablet (10 mg total) by mouth daily 2 Active cyanocobalamin, vitamin B-12, (VITAMIN B-12 ORAL) Take by mouth Active cetirizine (ZyrTEC) 10 mg tablet Take 1 tablet (10 mg total) by mouth 3 (three) times a day Active albuterol HFA (PROVENTIL HFA,VENTOLIN HFA,PROAIR HFA) 90 mcg/actuation inhaler 2 Active Synthroid 150 mcg tablet 4 Active estradioL (ESTRACE) 0.01 % (0.1 mg/gram) vaginal cream insert ONE gram vaginally twice a WEEK 4 Active tirzepatide (MOUNJARO) 5 mg/0.5 mL pen injector Inject under the skin Active secukinumab (COSENTYX SENSOREADY) pen injectorIndicat ions:Psoriatic Arthritis Inject 1 mL (150 mg total) under the skin every 30 (thirty) days 3 mL 1 5 Active amLODIPine (NORVASC) 5 mg tablet Take 1 tablet (5 mg total) by mouth daily 5 Active spironolactone (ALDACTONE) 25 mg tablet Take 1 tablet (25 mg total) by mouth daily 5 Active Active Problems Problem Noted Date Diagnosed Date 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 Fatigue 09/11/2015 Medication monitoring encounter 09/11/2015 Polyarthralgia 09/11/2015 Psoriasis 09/11/2015 Psoriatic arthritis 09/11/2015 Right wrist tendinitis 09/11/2015 Sacroiliitis 09/11/2015 Surgical History Surgery Date Site/Laterality Comments ROTATOR CUFF REPAIR 11/15/2007 - 11/14/2008 Right FOOT SURGERY 11/15/2009 - 11/14/2010 Right ROTATOR CUFF REPAIR 11/15/2017 - 11/14/2018 Left WRIST SURGERY 11/15/2020 - 11/14/2021 Left Medical History Medical History Date Comments Depression Hypertension Asthma Hypothyroidism Sinusitis Psoriasis Osteoarthritis Arthritis Family History Medical History Relation Name Comments Colon cancer Brother 1 Testicular cancer Brother 2 Arthritis Father Heart disease Father Arthritis Mother Osteoarthritis Mother Osteoporosis Mother Psoriasis Mother Relation Name Status Comments Brother 1 Alive Brother 2 Alive Daughter Alive Father Mother Sister Alive Social History Tobacco Use Types Packs/Day Years Used Date Smoking Tobacco: Former Smokeless Tobacco: Never Tobacco Cessation:Counseling Given: Not Answered AUDIT-C Answer Date Recorded Q1: How often do you have a drink containing alc ohol? 2-4 times a month 08/10/2024 Q2: How many drinks containi ng alcohol do you have on a typical day when you are drinking? 1 or 2 08/10/2024 Q3: How often do you have si x or more drinks on one occasion? Never 08/10/2024 Personal Safety Answer Date Recorded Have you ever been in or are you currently in a harmful physical or emotional relationship or is someone making you feel afraid or unsafe? Denies 08/10/2024 Comments No Sex and Gender Information Value Date Recorded Sex Assigned at Not on file Legal Sex Female 6:30 AM BATCH MIXER Gender Identity Female 11/22/2023 9:16 AM BATCH MIXER Sexual Orientation Not on file Occupation Industry Job Start Date Job End Date retired Not on file Not on file Not on file Obstetrics History Para Term AB IAB SAB Ectopic Multiple Livin g Live Births 4 2 Date Outcome GA Total Labor Labor/2nd/3rd Weight Sex Type Anes PTL Jazmine A1 A5 Name Clin Para Para Comments 2 abortions Last Filed Vital Signs Vital Sign Reading Time Taken Comments Blood Pressure 132/81 02/27/2025 9:54 AM CDT Pulse 59 02/27/2025 9:54 AM CDT Temperature 36.6 C (97.9 F) 02/27/2025 9:54 AM CDT Respiratory Rate 18 02/12/2025 5:10 PM CDT Oxygen Saturation 99% 02/12/2025 5:10 PM CDT Inhaled Oxygen Concentration - - Weight 76.2 kg (168 lb) 02/27/2025 9:54 AM CDT Height 160 cm (5' 3) 02/27/2025 9:54 AM CDT Body Mass Index 29.76 02/27/2025 9:54 AM CDT Plan of Treatment Health Maintenance Due Date Last Done Comments Breast Cancer Screening-Mammogram 1955 Colon Cancer Screening-Colonoscopy 1955 Depression Screening 1955 Osteoporosis Screening-Bone Density Scan 1955 DTaP/Tdap/Td Vaccine (1 - Tdap) 1966 Hepatitis B Screening 1973 Pneumococcal vaccine 65+ (1 of 1 - PCV) 2005 Zoster Vaccine (1 of 2) 2005 Well Visit 65+ 2020 Covid-19 Vaccine (3 - Pfizer risk series) 03/02/2021 02/02/2021, 01/11/2021 Influenza Vaccine (#1) 2025 08/25/2021, 2019 Fall Risk Assessment 08/10/2025 08/10/2024 Hepatitis C Screening Completed 02/25/2022 Medical Devices Implanted Type Area Scrum Project Manager Device Identifier Shelf Expiration Date Model / Serial / Lot [employer] Internalbrace Kit Hand Wrist Set Implant Ligament Augmentation [id number]-8978-[id number] - [id number] Implanted:Qty: 1 on 08/10/2024 by Luis Enrique Kruse MD at [facility] Right: Arm [employer] [id number] 02/12/2029 [id number]-8978-[id number] / / [id number] Procedures Procedure Name Priority Date/Time Associated Diagnosis Comments HEPATITIS PANEL, ACUTE Routine 02/25/2022 9:30 AM CDT Psoriatic arthritis (HCC) from Last 3 Months or Most Recently Relevant to Health Maintenance Results * Hepatitis panel, acute (02/25/2022 9:30 AM CDT) Hep A IgM Nonreactive Nonreactive [facility] Comment: Interpretive Data: If Hep A IgM Ab is reported as Equivocal, a new sample should be drawn in two weeks for testing. Current interpretive data was last revised on 20. Hep B core IgM Nonreactive Nonreactive [facility] Comment: Interpretive Data If HepB Core IgM Ab is reported as Equivocal, a new sample should be drawn in two weeks for testing. Current interpretive data was last revised on 20. Hep C Ab Nonreactive Nonreactive [facility] Comment:Antibodies to HCV no t detected. Does NOT exclude the possibility of recent exposure to HCV. HepBsAg Nonreactive Nonreactive [facility] Blood 02/25/2022 9:30 AM CDT 02/25/2022 11:34 AM CDT us Layla Frausto MD LAB MICROBIOLOGY - GENERAL ORDER KELSEY Edited Result - Final [facility] [place] [address] from Last 3 Months or Most Recently Relevant to Health Maintenance [facility] MEDICARE ADVANTAGE [employer] CHOICE MEDICARE PPO Care Teams Railroad Car Checker Relationship Specialty Start Date End Date Abdiaziz Singh MD PCP - General Family Medicine 05/04/22
--- OUTSIDE RECORDS SUMMARY | 2025-08-16 09:15 | XMS_ITS | Clinical Summary ---
Author Organization [facility] Address [address] [place] [address] Care Team Providers Care Model Maker Name Role Phone Mariajose Hernandez MD Primary Care Provider [phone] Source Comments [facility],non-owned Affiliates and Associated Physician Practices is amultiple site organization consisting of ambulatory clinics and hospital sitesin [place], [place], [place] and [place]. This disclosure is being madepursuant to the Care Everywhere program and may not contain all information available regarding this patient. Last updated 18.[facility] [employer] Allergies Active Allergy Reactions Criticality Noted Date Comments Sulfa Drugs 07/15/2015 Medications * Be aware that medications may not be up to date on this document. Alwaysverify current medications with the patient. levothyroxine (SYNTHROID) 175 MCG tablet Take 175 mcg by mouth daily before breakfast 3 5 Active citalopram (CELEXA) 40 MG tablet Take 40 mg by mouth once daily Active pantoprazole EC (PROTONIX) 40 MG tablet Take 40 mg by mouth once daily Active etanercept (ENBREL) 50 MG/ML injection Inject 50 mg subcutaneously every 7 days 12 Pen 2 5 Active lisinopril (PRINIVIL; ZESTRIL) 20 MG tablet Take 20 mg by mouth once daily Active leflunomide (ARAVA) 20 MG tablet Take 1 Tab by mouth once daily Once a day for Soriactic Arthritis 90 Tab 3 5 Active lisinopril-hyd rochlorothiazi de (PRINZIDE; ZESTORETIC) 20-25 MG tablet Take 1 Tab by mouth once daily 3 6 Active hydroxychloroq uine (PLAQUENIL) 200 MG tablet Take 1 Tab by mouth 2 times daily 60 Tab 3 6 Active predniSONE (DELTASONE) 10 MG tablet Take 1 Tab by mouth once daily Take 3 tabs daily for 1 week, then 2 tabs daily for 1 week, then 1 tab daily for 1 week 42 Tab 0 6 Active meloxicam (MOBIC) 15 MG tablet TAKE 1 TABLET BY MOUTH EVERY DAY 90 Tab 2 6 Active Active Problems Problem Noted Date Diagnosed Date Psoriatic arthritis 09/11/2015 Psoriasis 09/11/2015 Right wrist tendinitis 09/11/2015 Fatigue 09/11/2015 Medication monitoring encounter 09/11/2015 Polyarthralgia 09/11/2015 Sacroiliitis 09/11/2015 Family History Medical History Relation Name Comments Heart Disease Father Alzheimer's Disease Mother Relation Name Status Comments Father (Age 72) Mother Alive Social History Tobacco Use Types Packs/Day Years Used Date Smoking Tobacco: Never Smokeless Tobacco: Never Alcohol Use Standard Drinks/Week Comments No 0 (1 standard drink = 0.6 oz pur e alcohol) Comments No Sex and Gender Information Value Date Recorded Sex Assigned at Not on file Legal Sex Female 12:03 PM CDT Gender Identity Not on file Sexual Orientation Not on file Last Filed Vital Signs Vital Sign Reading Time Taken Comments Blood Pressure 121/55 04/15/2016 9:22 AM CDT Pulse 68 04/15/2016 9:22 AM CDT Temperature - - Respiratory Rate - - Oxygen Saturation - - Inhaled Oxygen Concentration - - Weight 82.7 kg (182 lb 6.4 oz) 04/15/2016 9:22 A M CDT Height 162.6 cm (5' 4) 04/15/2016 9:22 AM CDT Body Mass Index 31.31 04/15/2016 9:22 AM CDT Plan of Treatment Health Maintenance Due Date Last Done Comments BONE DENSITY TESTING 1955 COLOGUARD (AGES 45-75) - COL ON CA SCREENING 1955 COLON MONITORING 1955 COLONOSCOPY - COLON CA SCREENING 1955 CT COLONOGRAPHY - COLON CA SCREENING 1955 Colorectal Cancer Screening 1955 FIT - COLON CA SCREENING 1955 FLEX SIG - COLON CA SCREENING 1955 LIPID TESTING 1955 MAMMOGRAM 1955 HEPATITIS C SCREENING 10/25/1973 DTAP/TDAP/TD VACCINES (1 - Tdap) 1974 PNEUMOCOCCAL VACCINE 50+ (1 of 1 - PCV) 2005 ZOSTER VACCINE (1 of 2) 2005 DEPRESSION SCREENING 11/15/2024 COVID-19 VACCINE (1 - 2023-2 5 season) 2025 INFLUENZA VACCINE (#1) 2025 Respiratory Syncytial Virus (RSV) Vaccine Pt: or over 60 yrs (1 - 1-dose 75+ series) 2030 HEPATITIS B VACCINE Aged Out No longe r eligible based on patient's age to complete this topic HIB VACCINE Aged Out No longer eligi ble based on patient's age to complete this topic HPV VACCINE Aged Out No longer eligi ble based on patient's age to complete this topic MENINGOCOCCAL (Group B) VACC INE SHARED DECISION-MAKING Aged Out No longer eligibl e based on patient's age to complete this topic MENINGOCOCCAL GROUPS A/C/Y/W VACCINE Aged Out No longer eligible b ased on patient's age to complete this topic Insurance [facility] Address: [facility] [id number] [place] [address] [employer] Care Teams Model Maker Relationship Specialty Start Date End Date Mariajose Henrandez MD [facility] [address] [place] [address] PCP - General 07/26/20
== END 2025-08-16 08:55 | disposition home or self-care (01) ==
LOC: ANHFOHIMG 08:57
PROVIDERS: PCP Family Medicine Adolescent Medicine; Visit Provider Nurse Practitioner Family
DX: Z12.31 Encounter for screening mammogram for malignant neoplasm of breast (principal)
CPT/HCPCS: 77063; 77067